=== PATIENT | male | born 1945 | race Two or more races ===

== ENCOUNTER → 2017-10-24 | Emergency (ER) | payer OTHER ==
[~2017-10-24] VITALS: Ht 175.3 cm; Wt 87.1 kg
[~2017-10-24] MED LIST: FLOMAX 0.4 MG; RECTICARE30 GM TP; TRAMADOL HCL-AP1 TAB PO; ULTRACET PO
== END | disposition home or self-care (01) ==
LOC: ER 13:55
DX: N20.1 Calculus of ureter (principal); N39.0 Urinary tract infection, site not specified

== ENCOUNTER 2020-01-27 10:12 | Inpatient (IN) | payer OTHER ==
[~2020-01-27] VITALS: Ht 175.3 cm; Wt 83.0 kg
[2020-01-27] MEDS ORDERED: SYNTHROID50 MCG PO (11:01)
[2020-01-27] MEDS ORDERED: METFORMIN HCL500 M2 PO (11:02)
== END 2020-01-29 11:59 | disposition home or self-care (01) | DRG 390 ==
LOC: ER 10:12 → SEC-K 18:18 → SURH 18:18
PROVIDERS: ADMIT Surgery; ATTEND Surgery
PROC: BW21ZZZ Computerized Tomography (CT Scan) of Abdomen and Pelvis (ICD-10-PCS; principal; 2020-01-27)
DX: K56.600 Partial intestinal obstruction, unspecified as to cause (principal); E03.8 Other specified hypothyroidism; E11.9 Type 2 diabetes mellitus without complications

== ENCOUNTER 2021-04-21 13:16 | Outpatient (CLI) | payer OTHER ==
[~2021-04-21 13:16] MED LIST changes: +METFORMIN HCL500 M2 PO; +SYNTHROID50 MCG PO
== END 2021-04-21 13:29 | disposition home or self-care (01) ==
LOC: SONOGRAMA 13:16 → MAMO-SONO 14:30
PROVIDERS: ATTEND General Practice
DX: R94.4 Abnormal results of kidney function studies (principal); R31.29 Other microscopic hematuria; R80.8 Other proteinuria

== ENCOUNTER 2022-11-30 11:30 | Outpatient (CLI) | payer OTHER | END 2022-11-30 11:46 | disposition home or self-care (01) | LOC: RAD 11:30 | PROVIDERS: ATTEND General Practice | DX: R05.9 Cough, unspecified (principal) ==

== ENCOUNTER 2022-12-01 06:47 | Outpatient (CLI) | payer OTHER | END 2022-12-01 06:53 | disposition home or self-care (01) | LOC: LAB 06:47 | PROVIDERS: ATTEND General Practice | DX: R05.9 Cough, unspecified (principal); Z20.822 Contact with and (suspected) exposure to COVID-19; Z13.83 Encounter for screening for respiratory disorder NEC; E11.8 Type 2 diabetes mellitus with unspecified complications ==

== ENCOUNTER 2023-12-04 13:18 | Emergency (ER) | payer OTHER ==
[~2023-12-04] VITALS: Ht 175.3 cm; Wt 88.0 kg
[2023-12-04] MEDS ORDERED: DEXTROSE 5 % AND 0.9 % NACL 500 ML IV STA (16:11)
[2023-12-04 16:48] LABS: HEMATOCRIT 43.2 % (39.0-48.0); HEMOGLOBIN 14.5 g/dL (13-16.00); MEAN CORPUSCULAR HEMOGLOBIN 31.9 pg (27.00-32.0); MEAN CORPUSCULAR HGB CONC 33.6 g/dl (32.0-36.0); PLATELET COUNT 329 K/uL (150-450); RED BLOOD COUNT 4.55 M/uL (4.00-6.00); RED CELL DISTRIBUTION WIDTH 13.4 % (11.5-14.5)
[2023-12-04 17:00] LABS: URINE APPEARANCE Clear; URINE BILIRRUBIN Negative (NEGATIVE); URINE BLOOD Small; URINE COLOR Yellow; URINE EPITHELIAL CELLS 3.8 uL (0.0-38.8); URINE GLUCOSE Negative (NEGATIVE); URINE LEUKOCYTE Negative; URINE NITRATE Negative; URINE PROTEIN Negative (NEGATIVE); URINE RBC 2.7 uL (0.0-20.8); URINE UROBILINOGEN 0.2 E.U./dl; URINE WBC 3.7 uL (0.0-23.2)
[2023-12-04] MEDS ORDERED: RIVAROXABAN 15 MG TABLET PO SCH (17:00)
[2023-12-04 17:13] LABS: INR 0.96; PARTIAL THROMBOPLASTIN TIME 29.9 SECONDS (22.0-34.0); PROTHROMBIN TIME 10.1 SECONDS (9.0-11.5)
[2023-12-04 17:20] LABS: ALBUMIN 3.5 gm/dL (3.4-5.0); BILIRUBIN TOTAL 0.44 mg/dL (0.3-1.2); CALCIUM 9.2 mg/dL (8.5-10.1); CREATININE SERUM 1.17 mg/dL (0.70-1.30); GFR 60.14; GLOBULINA 4.2 G/DL (2.4-3.5); POTASSIUM 4.09 mEq/L (3.5-5.1); TOTAL PROTEIN 7.7 gm/dL (6.4-8.2)
[2023-12-04] MEDS ORDERED: RIVAROXABAN 15 MG TABLET PO STA (20:27)
== END 2023-12-04 21:48 | disposition home or self-care (01) ==
LOC: ER 13:18
PROVIDERS: Emergency Medicine
DX: I82.409 Acute embolism and thrombosis of unspecified deep veins of unspecified lower extremity (principal); Z88.0 Allergy status to penicillin; Z88.1 Allergy status to other antibiotic agents

== ENCOUNTER 2024-03-04 09:03 | Outpatient (CLI) | payer OTHER | END 2024-03-04 09:04 | disposition home or self-care (01) | LOC: NUCLEAR 09:03 | PROVIDERS: ATTEND Internal Medicine Hematology & Oncology | DX: I82.401 Acute embolism and thrombosis of unspecified deep veins of right lower extremity (principal); I87.2 Venous insufficiency (chronic) (peripheral) ==

== ENCOUNTER 2024-03-11 19:34 | Inpatient (IN) | payer OTHER ==
[~2024-03-11] VITALS: Ht 175.3 cm; Wt 87.1 kg
--- NOTE | 2024-03-11 20:49 | NUR ---
PTE ALERTA Y ORIENTADO X3. REFIERE DOLOR ABDOMINAL DESDE LAURITA EN LA NOCHE SE SERENE SV BP MANUAL 170/98. SE REALIZA EKG Y SE PRESENTA A DR. BERGMAN
[2024-03-11] MEDS ORDERED: PANTOPRAZOLE SODIUM 40 MG/VIAL VIAL IV PUSH ONE (21:15)
[2024-03-11 21:29] LABS: HEMATOCRIT 42.9 % (39.0-48.0); HEMOGLOBIN 14.6 g/dL (13-16.00); MEAN CELL VOLUME 94.1 fL (80.0-100.00); PLATELET COUNT 237 K/uL (150-450); RED BLOOD COUNT 4.56 M/uL (4.00-6.00); RED CELL DISTRIBUTION WIDTH 13.1 % (11.5-14.5)
[2024-03-11 21:48] LABS: ALBUMIN 3.8 gm/dL (3.4-5.0); BILIRUBIN TOTAL 0.54 mg/dL (0.3-1.2); CALCIUM 9.1 mg/dL (8.5-10.1); CREATININE SERUM 0.92 mg/dL (0.70-1.30); GFR 79.36; GLOBULINA 3.7 G/DL (2.4-3.5); POTASSIUM 4.45 mEq/L (3.5-5.1); TOTAL PROTEIN 7.5 gm/dL (6.4-8.2)
[2024-03-11 22:00] LABS: PH,URINE 5.5 (5.0-8.0); URINE APPEARANCE Clear; URINE BILIRRUBIN Negative (NEGATIVE); URINE BLOOD Moderate; URINE COLOR Yellow; URINE GLUCOSE Negative (NEGATIVE); URINE LEUKOCYTE Negative; URINE NITRATE Negative; URINE PROTEIN Negative (NEGATIVE); URINE UROBILINOGEN 0.2 E.U./dl
[2024-03-11 22:03] LABS: URINE RBC 57.5 uL (0.0-20.8)
[2024-03-11 22:07] LABS: URINE BACTERIA 2.5 uL (0.0-1933); URINE EPITHELIAL CELLS 0.6 uL (0.0-38.8); URINE WBC 1.6 uL (0.0-23.2)
[2024-03-11] MEDS ORDERED: ONDANSETRON HCL 2 MG/ML VIAL IV STA (22:36)
[2024-03-11] MEDS ORDERED: ONDANSETRON HCL 2 MG/ML VIAL ONE (22:39)
[2024-03-12] MEDS ORDERED: LIDOCAINE HCL VISCOUS 20MG/ML BLIST 15ML MM ONE (00:24)
--- NOTE | 2024-03-12 00:58 | NUR ---
SE INSERTA TUBO NGT POR FOSA IZQUIERDA SE OBSERVA 250 ML DE EGRESO SE DEREK EN SUCCION INTERMITENTE
[2024-03-12] MEDS ORDERED: INSULIN REGULAR, HUMAN 1,000 UNIT/10 ML UNITS IV STA (02:09)
[2024-03-12] MEDS ORDERED: FAMOtidine 200mg/20ml VIAL ONE (04:47)
--- NOTE | 2024-03-12 07:13 | NUR ---
SE RECIBE PACIENTE EN AREA DE K6 EN CAMA CON BARANDAS ELEVADAS EN POSICION SEMI SENTADA. AL MOMENTO PTE SE ENCUENTRA CON NGT A SUCCION BAJA INTERMITENTE AL MOMENTO SE OBSERVA CANISTER CON SECRECIONES. SE MIDEN S/V Y SE MANTIENE EN ESPERA POR CONSULTA.
[2024-03-12] MEDS ORDERED: MEPERIDINE HCL/PF 25 MG/ML VIAL IV PRN (08:15)
[2024-03-12] MEDS ORDERED: CIPROFLOXACIN IN 5 % DEXTROSE 400 MG/200 ML PIGGYBAG IV SCH (11:48)
[2024-03-12] MEDS ORDERED: CIPROFLOXACIN IN 5 % DEXTROSE 400 MG/200 ML PIGGYBAG IV ONE (12:14)
[2024-03-12] MEDS ORDERED: INSULIN LISPRO 1,000 UNIT/10 ML UNITS SUBCUTANEO PRN (12:30)
[2024-03-12] MEDS ORDERED: DEXTROSE 50 % IN WATER 0.5 G/ML DISP.SYRIN IV PRN (12:30)
[2024-03-12] MEDS ORDERED: METRONIDAZOLE/SODIUM CHLORIDE 500 MG/100 ML PIGGYBACK IV ONE (15:57)
[2024-03-12] MEDS ORDERED: METRONIDAZOLE/SODIUM CHLORIDE 100 ML IV SCH (17:00)
[2024-03-13] MEDS ORDERED: 0.9 % SODIUM CHLORIDE 1,000 ML IV SCH (12:30)
[2024-03-13 12:58] LABS: HEMATOCRIT 41.9 % (39.0-48.0); HEMOGLOBIN 14.1 g/dL (13-16.00); MEAN CELL VOLUME 94.3 fL (80.0-100.00); MEAN CORPUSCULAR HEMOGLOBIN 31.8 pg (27.00-32.0); MEAN CORPUSCULAR HGB CONC 33.7 g/dl (32.0-36.0); PLATELET COUNT 227 K/uL (150-450); RED BLOOD COUNT 4.44 M/uL (4.00-6.00); RED CELL DISTRIBUTION WIDTH 13.6 % (11.5-14.5)
[2024-03-13 13:51] LABS: ALBUMIN 3.4 gm/dL (3.4-5.0); BILIRUBIN TOTAL 0.89 mg/dL (0.3-1.2); CALCIUM 8.9 mg/dL (8.5-10.1); CREATININE SERUM 0.98 mg/dL (0.70-1.30); GFR 73.78; GLOBULINA 3.1 G/DL (2.4-3.5); MAGNESIUM 2.2 mg/dL (1.8-2.4); PHOSPHOROUS 2.8 mg/dL (2.5-4.9); POTASSIUM 4.8 mEq/L (3.5-5.1); TOTAL PROTEIN 6.5 gm/dL (6.4-8.2)
[2024-03-13 13:52] LABS: C-REACTIVE PROTEIN 6.08 MG/DL (0.00-0.29)
[2024-03-13] MEDS ORDERED: ENOXAPARIN SODIUM 40 MG/0.4 ML SYRINGE SUBCUTANEO SCH (17:00)
[2024-03-13 17:08] LABS: FECAL LEUKOCYTES NEGATIVE (NEGATIVE); ob POSITIVE (NEGATIVE)
[2024-03-13] MEDS ORDERED: METRONIDAZOLE/SODIUM CHLORIDE 100 ML IV SCH (21:00)
[2024-03-13] MEDS ORDERED: FAMOTIDINE/PF 20 MG in 0.9 % SODIUM CHLORIDE 100 ML IV SCH (21:00)
[2024-03-14] MEDS ORDERED: CIPROFLOXACIN IN 5 % DEXTROSE 400 MG/200 ML PIGGYBAG IV SCH (05:00)
[2024-03-15] MEDS ORDERED: INSULIN GLARGINE,HUM.REC.ANLOG 1,000 UNITS/10 ML UNITS SUBCUTANEO ONE (01:21)
[2024-03-15] MEDS ORDERED: LEVOTHYROXINE SODIUM 100 MCG/VIAL VIAL IV SCH (09:00)
[2024-03-16] MEDS ORDERED: LACTOBACILLUS ACIDOPHILUS 1 CAP CAP PO SCH (14:37)
[2024-03-17] MEDS ORDERED: LEVOTHYROXINE SODIUM 50 MCG TABLET PO SCH (06:00)
== END 2024-03-17 13:59 | disposition home or self-care (01) | DRG 389 ==
LOC: ER 19:35 → SEC-K 03-12 08:12 → MEDI 03-12 08:12
PROVIDERS: General Practice; Internal Medicine Infectious Disease; ADMIT Internal Medicine; ATTEND Internal Medicine
PROC: BW21YZZ Computerized Tomography (CT Scan) of Abdomen and Pelvis using Other Contrast (ICD-10-PCS; principal; 2024-03-11)
DX: K56.609 Unspecified intestinal obstruction, unspecified as to partial versus complete obstruction (principal); A09 Infectious gastroenteritis and colitis, unspecified; I80.9 Phlebitis and thrombophlebitis of unspecified site; E03.9 Hypothyroidism, unspecified; E11.9 Type 2 diabetes mellitus without complications; Z79.4 Long term (current) use of insulin

== ENCOUNTER 2024-05-16 12:55 | Outpatient (CLI) | payer OTHER | END 2024-05-16 13:06 | disposition home or self-care (01) | LOC: MRI 12:55 | DX: M25.562 Pain in left knee (principal) | CPT/HCPCS: 73721 ==

== ENCOUNTER 2024-07-29 09:30 | Outpatient (CLI) | payer OTHER | END 2024-07-29 09:31 | disposition home or self-care (01) | LOC: NUCLEAR 09:30 | PROVIDERS: ATTEND Internal Medicine Hematology & Oncology | DX: I87.2 Venous insufficiency (chronic) (peripheral) (principal) ==

== ENCOUNTER 2025-04-30 10:47 | Outpatient (CLI) | payer OTHER | END 2025-04-30 10:48 | disposition home or self-care (01) | LOC: NUCLEAR 10:47 | PROVIDERS: ATTEND Internal Medicine Hematology & Oncology | DX: I82.401 Acute embolism and thrombosis of unspecified deep veins of right lower extremity (principal); I87.1 Compression of vein ==